=== PATIENT | male | born 1980 | race Caucasian/White ===

== ENCOUNTER 2019-02-12 16:48 | Inpatient (IN) ==
[2019-02-12] MEDS ORDERED: ONDANSETRON 4 MG/2 ML VIAL IV STA (17:34)
[2019-02-12] MEDS ORDERED: SODIUM CHLORIDE 0.9% 1,000 ML IV STA (17:34)
[2019-02-12] MEDS ORDERED: PANTOPRAZOLE 40 MG VIAL IV STA (17:34)
[2019-02-12 17:36] LABS: Basophils % 0.2 % (0.0-0.8); Eosinophils # 0.2 10*3/uL (0.0-0.87); Eosinophils % 1.9 % (0.00-10.9); Hematocrit 42.3 VOL% (42.0-52.0); Hemoglobin 14.1 GM/DL (14.0-18.0); Immature Granulocytes % 0.7 %; Immature Granulocytes Absolute 0.06 #; Lymphocytes # 1.6 10*3/uL (1.4-4.0); Lymphocytes % 18.6 % (21.2-54.2); Mean Corpuscular HGB Conc 33.3 GM/DL (32-36); Mean Corpuscular Volume 89.6 FL (87-102); Mean Platelet Volume 9.7 FL (9.6-12.0); Monocytes % 10.2 % (1.7-12.7); Neutrophils % 68.4 % (38.7-73.9); Platelet Count 257 T/CUMM (130-400); Red Blood Count 4.72 MC/CUMM (3.8-5.5); Red Cell Distribution Width 13.7 % (9.3-17.3); White Blood Count 8.6 T/CUMM (4-12)
[2019-02-12 17:43] LABS: Apearance,Urine CLEAR (Clear); Bilirubin,Urine Negative (Negative); Blood, Urine Small mg/dL (Negative); Glucose,Urine (UA) Negative (Negative); Ketones,Urine Negative (Negative); Mucus,Urine Occasional /LPF (Occasional); Nitrite,Urine Negative (Negative); Protein,Urine Negative; RBC,Urine 3 /HPF (0-4); Urine Color Yellow (Yellow); Urine Specific Gravity 1.011 (1.001-1.035); Urine Urobilinogen < 2.0 EU/DL (0.2-1.0); WBC,Urine 2 /HPF (0-6)
[2019-02-12] MEDS ORDERED: ONDANSETRON 4 MG/2 ML VIAL ONE (17:44)
[2019-02-12] MEDS ORDERED: PANTOPRAZOLE 40 MG VIAL IV ONE (17:44)
[2019-02-12 17:50] LABS: Albumin 3.7 G/DL (3.4-5.0); Bilirubin,Total 0.6 MG/DL (0.2-1.0); Calcium 8.7 MG/DL (8.5-10.1); Osmolality,Calculated 269.1 MOS/KG (273-304); Total Protein 7.8 G/DL (6.4-8.3)
[2019-02-12 18:04] LABS: Band Neutrophils 2 % (0-10); Eosinophils 3 % (0-10); Lymphocytes 17 % (20-55); Platelet Estimate Normal; Segmented Neutrophils 70 % (50-85); Total Cells Counted 100
[2019-02-12] MEDS ORDERED: ONDANSETRON 4 MG/2 ML VIAL IV PRN (22:08)
[2019-02-12] MEDS ORDERED: HYDROmorphone 2 MG/1 ML VIAL IV PRN (22:08)
[2019-02-12] MEDS: DOCUSATE SODIUM 100 MG CAPSULE PO SCH (22:37)
[2019-02-12] MEDS: PIPERACILLIN/TAZOBACTAM 3,375 MG in SODIUM CHLORIDE 0.9% 100 ML IV SCH (22:37)
[2019-02-12] MEDS: SODIUM CHLORIDE 0.9% 1,000 ML IV SCH (22:37)
[2019-02-12 22:38] LABS: Basophils % 0.2 % (0.0-0.8); Eosinophils # 0.1 10*3/uL (0.0-0.87); Eosinophils % 1.6 % (0.00-10.9); Hematocrit 38.8 VOL% (42.0-52.0); Hemoglobin 13.2 GM/DL (14.0-18.0); Immature Granulocytes % 0.6 %; Immature Granulocytes Absolute 0.05 #; Lymphocytes % 23.2 % (21.2-54.2); Mean Corpuscular Volume 90.2 FL (87-102); Mean Platelet Volume 9.3 FL (9.6-12.0); Monocytes % 11.5 % (1.7-12.7); Neutrophils % 62.9 % (38.7-73.9); Platelet Count 233 T/CUMM (130-400); Red Cell Distribution Width 13.6 % (9.3-17.3); White Blood Count 8.8 T/CUMM (4-12)
[2019-02-12 23:01] LABS: Eosinophils 1 % (0-10); Lymphocytes 26 % (20-55); Platelet Estimate Normal; Segmented Neutrophils 64 % (50-85); Total Cells Counted 100
[2019-02-13] MEDS: ACETAMINOPHEN 325 MG TABLET PO PRN ×2 (02:52→09:28)
[2019-02-13] MEDS: PIPERACILLIN/TAZOBACTAM 3,375 MG in SODIUM CHLORIDE 0.9% 100 ML IV SCH ×3 (05:38→22:59)
[2019-02-13] MEDS: SODIUM CHLORIDE 0.9% 1,000 ML IV SCH ×3 (05:39→20:21)
[2019-02-13 06:28] LABS: Albumin 2.9 G/DL (3.4-5.0); Bilirubin,Total 0.8 MG/DL (0.2-1.0); Calcium 8.2 MG/DL (8.5-10.1); Osmolality,Calculated 274.5 MOS/KG (273-304); Total Protein 6.4 G/DL (6.4-8.3)
[2019-02-13] MEDS: PANTOPRAZOLE 40 MG VIAL IV SCH (09:24)
[2019-02-13] MEDS: DOCUSATE SODIUM 100 MG CAPSULE PO SCH ×2 (09:30→20:21)
[2019-02-13] MEDS: EMTRICITABINE/TENOFOVIR 200-300 MG TABLET PO SCH (09:30)
[2019-02-14] MEDS: PIPERACILLIN/TAZOBACTAM 3,375 MG in SODIUM CHLORIDE 0.9% 100 ML IV SCH ×3 (05:45→21:55)
[2019-02-14] MEDS: PANTOPRAZOLE 40 MG VIAL IV SCH (09:12)
[2019-02-14] MEDS: DOCUSATE SODIUM 100 MG CAPSULE PO SCH ×2 (09:16→21:18)
[2019-02-14] MEDS: EMTRICITABINE/TENOFOVIR 200-300 MG TABLET PO SCH (11:21)
[2019-02-14] MEDS: SODIUM CHLORIDE 0.9% 1,000 ML IV SCH ×3 (11:21→21:55)
[2019-02-15] MEDS: SODIUM CHLORIDE 0.9% 1,000 ML IV SCH (03:28)
[2019-02-15 06:21] LABS: Basophils # 0.1 10*3/uL (0.0-0.2); Basophils % 0.9 % (0.0-0.8); Eosinophils # 0.3 10*3/uL (0.0-0.87); Eosinophils % 4.3 % (0.00-10.9); Hematocrit 38.1 VOL% (42.0-52.0); Hemoglobin 12.5 GM/DL (14.0-18.0); Immature Granulocytes % 3.9 %; Immature Granulocytes Absolute 0.26 #; Lymphocytes # 2.3 10*3/uL (1.4-4.0); Mean Corpuscular HGB Conc 32.8 GM/DL (32-36); Mean Corpuscular Volume 91.8 FL (87-102); Mean Platelet Volume 9.8 FL (9.6-12.0); Monocytes % 8.7 % (1.7-12.7); Neutrophils % 47.2 % (38.7-73.9); Platelet Count 311 T/CUMM (130-400); Red Blood Count 4.15 MC/CUMM (3.8-5.5); Red Cell Distribution Width 13.3 % (9.3-17.3); White Blood Count 6.7 T/CUMM (4-12)
[2019-02-15] MEDS: PIPERACILLIN/TAZOBACTAM 3,375 MG in SODIUM CHLORIDE 0.9% 100 ML IV SCH (06:26)
[2019-02-15 06:46] LABS: Band Neutrophils 1 % (0-10); Eosinophils 3 % (0-10); Lymphocytes 34 % (20-55); Platelet Estimate Normal; Segmented Neutrophils 51 % (50-85); Total Cells Counted 100
[2019-02-15] MEDS: PANTOPRAZOLE 40 MG VIAL IV SCH (11:00)
[2019-02-15] MEDS: DOCUSATE SODIUM 100 MG CAPSULE PO SCH (11:00)
[2019-02-15] MEDS: EMTRICITABINE/TENOFOVIR 200-300 MG TABLET PO SCH (11:07)
[2019-02-15 15:47] VITALS: BP 110/74
[2019-02-15] MEDS ORDERED: metroNIDAZOLE 500 MG TABLET PO SCH (21:00)
[2019-02-15] MEDS ORDERED: CIPROFLOXACIN 500 MG TABLET PO SCH (21:00)
== END 2019-02-15 16:40 | disposition home or self-care (01) | DRG 392 ==
LOC: N.ED 16:48 → N.EDINP 20:13 → N.3E 20:34
PROVIDERS: ADMIT Family Medicine; ATTEND Family Medicine